=== PATIENT | male | born 1940 | race African-American/Black ===

== ENCOUNTER 2016-12-11 12:39 | Emergency (ER) | payer OTHER, MEDICARE ==
[~2016-12-11] VITALS: Ht 188 cm; Wt 86.3 kg
[~2016-12-11 12:39] MED LIST: ALLEGRA180 MG PO; ALLEGRA30 MG PO; ALLERGY10 M1 PO; AMLODIPINE BESYL5 MG PO; ASPIR 8181 M1 PO; ASPIRIN81 M1 PO; DELTASONE20 M1 PO; DOXYCYCLINE HY100 MG PO; EPIVIR HBV100 MG PO; GLIPIZIDE5 MG PO; GLUCOTROL XL5 MG PO; LEVEMIR FL100 UNIT/1 SC; MULTIVITAMIN1 EAC2 PO; NAPROXEN500 M1 PO; NON-ASPIRIN EX500 MG PO; OMEPRAZOLE20 MG PO; PHENERGAN-CODE120 ML PO; PRILOSEC20 MG PO; PRILOSEC40 MG PO; SOVALDI400 MG PO; SPIRIVA1 INHALATI IH; TAMSULOSIN HCL0.4 MG PO; TUDORZA PRESS400 MCG IH; VENTOLIN HFA18 GM IH; ZITHROMAX Z-PA250 MG PO; [UNRECOGNIZED DRUG - OTHER] PO
[2016-12-11 14:03] LABS: HEMATOCRIT 35.2 % (38.0-50.0); MCH 27.7 PG (29.0-34.0); MCHC 32.4 G/DL (30.0-36.0); MCV 85.4 FL (86-99); MEAN PLAT.VOLUME 10.1 uM^3 (9.0-12.4); PLATELET COUNT 326 K/uL (156-360); RBC DIS.WIDTH-CV 17.7 % (11.8-14.6); RBC DIS.WIDTH-SD 55.4 % (39-53); RED BLOOD COUNT 4.12 M/uL (4.00-5.50); WHITE BLOOD COUNT 5.6 K/uL (4.1-10.2)
[2016-12-11 14:14] LABS: CHLORIDE 107 mEq/L (99-109); POTASSIUM 4.4 mEq/L (3.7-5.4); SODIUM 139 mEq/L (136-147)
[2016-12-11 14:16] LABS: GLUCOSE 124 mg/dL (70-99)
[2016-12-11 14:18] LABS: ANION GAP 11 MEQ/L (2-14); TOTAL BILIRUBIN 2.1 mg/dL (0.0-1.0)
[2016-12-11 14:20] LABS: ALKALINE PHOSPHATASE 575 IU/L (3-129); GFR ESTIMATE (CALCULATED) > 59 mL/min/
[2016-12-11 14:21] LABS: UREA NITROGEN (BUN) 14 mg/dL (9-23)
[2016-12-11 17:14] LABS: ADD MIUA? NO; BILIRUBIN NEGATIVE; BLOOD NEGATIVE; GLUCOSE (STRIP) NEGATIVE; KETONES NEGATIVE; LEUKOCYTES NEGATIVE; NITRITE NEGATIVE; PROTEIN (STRIP) NEGATIVE; SPECIFIC GRAVITY 1.017 (1.000-1.030); UROBILINOGEN 0.2 MG/DL (0.2-1.0)
[2016-12-11 17:15] LABS: COLOR DK YELLOW ((YELLOW))
[2016-12-11] MEDS ORDERED: VALIUM5 MG PO (20:08)
[2016-12-11 20:43] VITALS: BP 112/77
== END 2016-12-11 20:44 | disposition home or self-care (01) ==
LOC: EME 12:39
PROVIDERS: Physician Assistant
DX: S16.1XXA Strain of muscle, fascia and tendon at neck level, initial encounter (principal); X58.XXXA Exposure to other specified factors, initial encounter; R10.9 Unspecified abdominal pain; R74.8 Abnormal levels of other serum enzymes; N28.1 Cyst of kidney, acquired; R16.0 Hepatomegaly, not elsewhere classified; K57.30 Diverticulosis of large intestine without perforation or abscess without bleeding; Z85.118 Personal history of other malignant neoplasm of bronchus and lung; Z85.05 Personal history of malignant neoplasm of liver; Z85.46 Personal history of malignant neoplasm of prostate; I10 Essential (primary) hypertension; E11.9 Type 2 diabetes mellitus without complications; Z79.4 Long term (current) use of insulin; Z79.82 Long term (current) use of aspirin; Z87.891 Personal history of nicotine dependence
CPT/HCPCS: 74177; 76705; 80053; 81003; 85027; 99281; 99284; J7040

== ENCOUNTER → 2016-12-23 | Outpatient (CLI) | payer OTHER, MEDICARE ==
[~2016-12-23] MED LIST changes: +ACETAMINOPHEN325 M1 PO; +ALLEGRA ALLERG180 MG PO; +COMPAZINE10 MG PO; +IMODIUM A-D2 M2 PO; +PROAIR HFA8.5 GM IH; +ROXICODONE5 MG PO; +SPIRIVA18 MCG IH; +VALIUM5 MG PO
[2016-12-23 10:37] LABS: POINT-OF-CARE METER ID UU14174212
[2016-12-23 10:38] LABS: INTER. NORMALIZED RATIO 1.3; PROTHROMBIN TIME 14.9 SEC (10.2-12.9)
== END | disposition home or self-care (01) ==
LOC: OPR 09:46 → EDSTATUS 12-26 10:00 → OPR 12-26 10:00
PROVIDERS: Internal Medicine Hematology & Oncology
PROC: 0FB23ZX Excision of Left Lobe Liver, Percutaneous Approach, Diagnostic (ICD-10-PCS; principal; 2016-12-23)
DX: C22.0 Liver cell carcinoma (principal); C34.91 Malignant neoplasm of unspecified part of right bronchus or lung; Z85.72 Personal history of non-Hodgkin lymphomas; Z85.46 Personal history of malignant neoplasm of prostate; Z79.82 Long term (current) use of aspirin; Z79.4 Long term (current) use of insulin; Z92.21 Personal history of antineoplastic chemotherapy; G89.3 Neoplasm related pain (acute) (chronic)
CPT/HCPCS: 77012; 82948; 85610; 85730; 88307; 88313; 88341 TC; 88342 TC